=== PATIENT | female | born 1960 | race American Indian/Alaskan Native ===

== ENCOUNTER 2016-05-15 08:26 | Emergency (ER) | payer OTHER ==
[2016-05-15 08:47] VITALS: BP 160/91
--- NOTE | 2016-05-15 10:24 | Emergency Department Report ---
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 She denies numbness, tingling or incontinence Complaint: back pain Onset/Timin -: days(s) Similar Symptoms Previously: Yes Place: work Radiation: none Severity scale (0 -10): 9 Quality: aching Consistency: constant Improves With: immobilization Worsens With: movement Context: while lifting Associated Symptoms: denies other symptoms. denies: confusion, weakness, chest pain, numbness, difficulty walking, cough, difficulty urinating, diaphoresis, incontinence, fever/chills, constipation, headaches, abdominal pain, loss of appetite, malaise, nausea/vomiting, rash, seizure, shortness of breath, syncope Treatments Prior to Arrival: heat therapy, NSAIDS - Related Data Home Medications Medication Instructions Recorded Confirmed Last Taken Triamter/Hctz 37.5-25 mg PO DAILY 02/06/16 02/06/16 06:00 Previous Rx's Medication Instructions Recorded Last Taken Type Cyclobenzaprine [Flexeril] 10 mg PO TID PRN #20 tablet 05/15/16 Unknown Rx Ibuprofen [Motrin 800 MG tab] 800 mg PO Q8HR PRN #30 tablet 05/15/16 Unknown Rx Allergies Allergy/AdvReac Type Severity Reaction Status Date / Time No Known Allergies Allergy Verified 09/12/14 15:19 ED Review of Systems ROS: Stated complaint: BACK PAIN Other details as noted in HPI Constitutional: denies: chills, diaphoresis, fever, malaise, weakness Respiratory: denies: cough, orthopnea, shortness of breath, SOB with exertion, SOB at rest, stridor, wheezing Cardiovascular: denies: chest pain, palpitations, dyspnea on exertion, orthopnea , edema, syncope, paroxysmal nocturnal dyspnea Gastrointestinal: denies: abdominal pain, nausea, vomiting, diarrhea, constipation, hematemesis, melena Genitourinary: denies: urgency, dysuria, frequency, hematuria Musculoskeletal: back pain. denies: joint swelling, arthralgia, myalgia Skin: denies: rash, lesions, change in color, change in hair/nails, pruritus Neurological: denies: headache, weakness, numbness, paresthesias, confusion, abnormal gait, vertigo Hematological/Lymphatic: denies: easy bleeding, easy bruising, swollen glands ED Past Medical Hx - Past Medical History Previous Medical History?: Yes Hx Hypertension: Yes Hx Arthritis: Yes Additional medical history: heart murmur. OBESITY - Surgical History Past Surgical History?: Yes Additional Surgical History: X 2 , RIGHT shoulder surgery 2012 - Social History Smoking Status: Never Smoker Substance Use Type: None, Non Opiate Pain - Medications Home Medications: Home Medications Medication Instructions Recorded Confirmed Last Taken Type Triamter/Hctz 37.5-25 mg PO DAILY 02/06/16 02/06/16 06:00 History Cyclobenzaprine [Flexeril] 10 mg PO TID PRN #20 tablet 05/15/16 Unknown Rx Ibuprofen [Motrin 800 MG tab] 800 mg PO Q8HR PRN #30 tablet 05/15/16 Unknown Rx ED Physical Exam - General Limitations: No Limitations General appearance: alert, in no apparent distress - Head Head exam: Present: atraumatic, normocephalic - ENT ENT exam: Present: normal exam - Neck Neck exam: Present: normal inspection, full ROM. Absent: tenderness, meningismus, lymphadenopathy, thyromegaly - Respiratory Respiratory exam: Present: normal lung sounds bilaterally. Absent: respiratory distress, wheezes, rales, rhonchi, stridor, chest wall tenderness, accessory muscle use, decreased breath sounds, prolonged expiratory - Cardiovascular Cardiovascular Exam: Present: regular rate, normal rhythm. Absent: bradycardia , tachycardia, irregular rhythm, normal heart sounds, systolic murmur, diastolic murmur - GI/Abdominal GI/Abdominal exam: Present: soft, normal bowel sounds. Absent: distended, tenderness, guarding, rebound, rigid - Extremities Exam Extremities exam: Present: normal inspection, full ROM, normal capillary refill. Absent: tenderness, pedal edema, joint swelling, calf tenderness - Back Exam Back exam: Present: full ROM, tenderness (with palpation to right latissimus dorsi). Absent: CVA tenderness (R), CVA tenderness (L), muscle spasm, paraspinal tenderness, vertebral tenderness, rash noted - Neurological Exam Neurological exam: Present: alert, oriented X3, CN II-XII intact, normal gait, reflexes normal. Absent: motor sensory deficit - Psychiatric Psychiatric exam: Present: normal affect, normal mood - Skin Skin exam: Present: warm, dry, intact, normal color ED Course Vital Signs 05/15/16 08:43 Temperature 98.5 F Pulse Rate 64 Respiratory 20 Rate Blood Pressure 160/91 O2 Sat by Pulse 100 Oximetry ED Medical Decision Making - Medical Decision Making During the course of ED, all other systems are unremarkable except for documentation in HPI. Patient was sent home with prescriptions for Ibuprofen and Flexeril, instructed to follow up with the selective referral given at discharge, she verbalized understanding - Differential Diagnosis Back Pain, Musculoskeletal Pain Critical care attestation.: If time is entered above; I have spent that time in minutes in the direct care of this critically ill patient, excluding procedure time. ED Disposition Clinical Impression: Back pain Qualifiers: Back pain location: back pain in other location Chronicity: acute Qualified Code(s): M54.9 - Dorsalgia, unspecified Disposition: DISCHARGED TO HOME OR SELFCARE Is pt being admited?: No Does the pt Need Aspirin: No Condition: Stable Instructions: Back Pain (ED) Additional Instructions: Take medication as directed. Follow up with the selective referral given at discharge. Return back to the ED for worsening symptoms or concerns Prescriptions: Cyclobenzaprine [Flexeril] 10 mg PO TID PRN #20 tablet PRN Reason: Muscle Spasm Ibuprofen [Motrin 800 MG tab] 800 mg PO Q8HR PRN #30 tablet PRN Reason: Pain Referrals: PRIMARY MD BRIAN [Primary Care Provider] - 3-5 Days THONG KOEHLER MD [Staff Physician] - 3-5 Days Forms: Work/School Release Form(ED) Time of Disposition: 10:28
== END 2016-05-15 10:41 | disposition home or self-care (01) ==
LOC: ED 08:26
DX: M54.9 Dorsalgia, unspecified (principal); I10 Essential (primary) hypertension; M19.90 Unspecified osteoarthritis, unspecified site
CPT/HCPCS: 99282

== ENCOUNTER 2016-10-28 09:51 | Emergency (ER) | payer OTHER ==
[2016-10-28 11:09] VITALS: BP 143/84
[2016-10-28] MEDS ORDERED: TORADOL IM ONE (15:17)
--- NOTE | 2016-10-28 18:24 | Emergency Department Report ---
Entered by CINTHIA LEWIS, acting as scribe for ESTRADA TEMPLE NP. ED Extremity Problem HPI - General Chief complaint: Extremity Problem,Nontraumatic Stated complaint: RT HIP AND LEG Time Seen by Provider: 10/28/16 13:14 Source: patient Mode of arrival: Ambulatory Limitations: No Limitations - History of Present Illness Initial comments: This is a 55 y/o female, nontoxic, well nourished in appearance, no acute signs of distress with a PMHx of arthritis, HTN, heart murmur, and obesity presents with an acute episode of chronic back pain with radiating to right lower extremity pain that began 5 days ago. Rates pain an 8/10 in severity, which she describes as aching in quality. Aggravated with movement and palpation, and alleviated with nothing. Denies swelling, calf pain, calf tenderness, injury/ trauma, fever, chills, chest pain, SOB, MEHTA or dizziness, numbness, and tingling. Notes she had low back pain 1.5 month ago. Reports she was diagnosed previously with sciatica on the left side. Denies PMHx of herniated discs, DVT, and PE. Patient denies long car rides, recent travels, or recent hospital stays. 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 Took previously prescribed Flexeril with no relief. NKDA. COLON Complaint: extremity pain Onset/Timin -: days(s) Location: right, lower extremity History of Same: Yes -: No myalgia, Yes arthralgia, No fever, No associated dyspnea, No associated chest pain Radiation: none Severity scale (0 -10): 8 Quality: aching Consistency: constant Improves with: nothing Worsens with: weight bearing, walking Associated Symptoms: denies other symptoms, arthralgias. denies: chest pain, shortness of breath, fever, myalgias, rash - Related Data Home Medications Medication Instructions Recorded Confirmed Last Taken Triamter/Hctz 37.5-25 mg PO DAILY 02/06/16 02/06/16 06:00 Previous Rx's Medication Instructions Recorded Last Taken Type Cyclobenzaprine [Flexeril] 10 mg PO TID PRN #20 tablet 05/15/16 Unknown Rx Ibuprofen [Motrin 800 MG tab] 800 mg PO Q8HR PRN #30 tablet 05/15/16 Unknown Rx Cyclobenzaprine [Flexeril] 10 mg PO TID PRN #15 tablet 10/28/16 Unknown Rx Ibuprofen [Motrin 600 MG tab] 600 mg PO Q8H PRN #30 tablet 10/28/16 Unknown Rx Allergies Allergy/AdvReac Type Severity Reaction Status Date / Time No Known Allergies Allergy Verified 09/12/14 15:19 ED Review of Systems Comment: All other systems reviewed and negative Constitutional: denies: chills, fever Eyes: denies: eye pain, eye discharge, vision change ENT: denies: ear pain, throat pain Respiratory: denies: cough, orthopnea, shortness of breath, SOB with exertion, SOB at rest, stridor, wheezing Cardiovascular: denies: chest pain, palpitations, dyspnea on exertion, orthopnea , edema, syncope, paroxysmal nocturnal dyspnea Endocrine: no symptoms reported Gastrointestinal: denies: abdominal pain, nausea, vomiting, diarrhea Genitourinary: denies: urgency, dysuria, discharge Musculoskeletal: arthralgia (right lower extremity pain). denies: back pain, joint swelling, myalgia Skin: denies: rash, lesions Neurological: denies: headache, weakness, paresthesias Psychiatric: denies: anxiety, depression Hematological/Lymphatic: denies: easy bleeding, easy bruising ED Past Medical Hx - Past Medical History Previous Medical History?: Yes Hx Hypertension: Yes Hx Arthritis: Yes Additional medical history: heart murmur. OBESITY - Surgical History Past Surgical History?: Yes Additional Surgical History: X 2 , RIGHT shoulder surgery 2012 - Family History Family history: no significant - Social History Smoking Status: Never Smoker Substance Use Type: None - Medications Home Medications: Home Medications Medication Instructions Recorded Confirmed Last Taken Type Triamter/Hctz 37.5-25 mg PO DAILY 02/06/16 02/06/16 06:00 History Cyclobenzaprine [Flexeril] 10 mg PO TID PRN #20 tablet 05/15/16 Unknown Rx Ibuprofen [Motrin 800 MG tab] 800 mg PO Q8HR PRN #30 tablet 05/15/16 Unknown Rx Cyclobenzaprine [Flexeril] 10 mg PO TID PRN #15 tablet 10/28/16 Unknown Rx Ibuprofen [Motrin 600 MG tab] 600 mg PO Q8H PRN #30 tablet 10/28/16 Unknown Rx ED Physical Exam - General Limitations: No Limitations General appearance: alert, in no apparent distress - Head Head exam: Present: atraumatic, normocephalic - Eye Eye exam: Present: normal appearance, PERRL, EOMI. Absent: scleral icterus, conjunctival injection, nystagmus, periorbital swelling, periorbital tenderness Pupils: Present: normal accommodation - ENT ENT exam: Present: normal exam, normal orophraynx, mucous membranes moist, TM's normal bilaterally, normal external ear exam - Neck Neck exam: Present: normal inspection, full ROM. Absent: tenderness, meningismus, lymphadenopathy, thyromegaly - Respiratory Respiratory exam: Present: normal lung sounds bilaterally. Absent: respiratory distress, wheezes, rales, rhonchi, stridor, chest wall tenderness, accessory muscle use, decreased breath sounds, prolonged expiratory - Cardiovascular Cardiovascular Exam: Present: regular rate, normal rhythm, normal heart sounds. Absent: bradycardia, tachycardia, irregular rhythm, systolic murmur, diastolic murmur, rubs, gallop - GI/Abdominal GI/Abdominal exam: Present: soft, normal bowel sounds. Absent: distended, tenderness, guarding, rebound, rigid - Extremities Exam Extremities exam: Present: normal inspection, full ROM, normal capillary refill. Absent: tenderness, pedal edema, joint swelling, calf tenderness - Expanded Lower Extremity Exam Right Hip exam: Present: normal inspection, full ROM, external rotation, internal rotation, pelvic stability. Absent: tenderness, swelling, abrasion, laceration , ecchymosis, deformity, crepidus, dislocation, erythema, shortening Upper Leg exam: Present: normal inspection, full ROM. Absent: tenderness, swelling, abrasion, laceration, ecchymosis, deformity, crepidus, dislocation, erythema Knee exam: Present: full ROM, full knee extension. Absent: normal inspection, tenderness, swelling, abrasion, laceration, ecchymosis, deformity, crepidus, dislocation, erythema, effusion, pain w/ pronation/supination, posterior draw sign, pain/laxity with valgus, pain/laxity with varus Lower Leg exam: Present: full ROM. Absent: normal inspection, tenderness, swelling, abrasion, laceration, ecchymosis, deformity, crepidus, dislocation, erythema, palpable cord, Gilbert's sign Ankle exam: Present: normal inspection, full ROM. Absent: tenderness, swelling , abrasion, laceration, ecchymosis, deformity, crepidus, dislocation, erythema, anterior draw sign Foot/Toe exam: Present: normal inspection, full ROM. Absent: tenderness, swelling, abrasion, laceration, ecchymosis, deformity, crepidus, dislocation, erythema, amputation, puncture wound, foreign body, calcaneal tenderness, tenderness at base of 5th metatarsal, nail avulsion, subungual hematoma Neuro vascular tendon exam: Present: no vascular compromise. Absent: pulse deficit, abnormal cap refill, motor deficit, sensory deficit, tendon deficit, extremity cold to touch, pallor, abnormal 2-point discrimination, decreased fine /light touch, foot drop, peroneal nerve deficit, significant pain with passive ROM of distal joint Gait: Positive: observed and normal - Back Exam Back exam: Present: normal inspection, full ROM. Absent: tenderness, CVA tenderness (R), CVA tenderness (L), muscle spasm, paraspinal tenderness, vertebral tenderness, rash noted - Neurological Exam Neurological exam: Present: alert, oriented X3, CN II-XII intact, normal gait, reflexes normal. Absent: motor sensory deficit - Psychiatric Psychiatric exam: Present: normal affect, normal mood - Skin Skin exam: Present: warm, dry, intact. Absent: rash ED Course Vital Signs 10/28/16 10/28/16 11:05 15:23 Temperature 97.7 F Pulse Rate 68 Respiratory 18 18 Rate Blood Pressure 143/84 O2 Sat by Pulse 99 Oximetry - Reevaluation(s) Reevaluation #1: 10/28/16 15:44 Patient is speaking in full sentences with no distress ED Disposition Clinical Impression: Chronic back pain Qualifiers: Back pain location: low back pain Back pain laterality: left Sciatica presence : with sciatica Sciatica laterality: sciatica of right side Qualified Code(s): M54.41 - Lumbago with sciatica, right side; G89.29 - Other chronic pain Sciatica Qualifiers: Laterality: right Qualified Code(s): M54.31 - Sciatica, right side Low back strain Qualifiers: Encounter type: initial encounter Qualified Code(s): S39.012A - Strain of muscle, fascia and tendon of lower back, initial encounter Disposition: DC-01 TO HOME OR SELFCARE Is pt being admited?: No Does the pt Need Aspirin: No Condition: Stable Instructions: Sciatica (ED), Lumbar Radiculopathy (ED), Low Back Strain (ED), Ibuprofen (By mouth), Cyclobenzaprine (By mouth) Additional Instructions: Follow-up with a primary care doctor in 3-5 days or if symptoms worsen continue to emergency room as soon as possible. Take ibuprofen and Flexeril as prescribed. Do not operate heavy machinery while taking Flexeril due to sedation Prescriptions: Cyclobenzaprine [Flexeril] 10 mg PO TID PRN #15 tablet PRN Reason: Muscle Spasm Ibuprofen [Motrin 600 MG tab] 600 mg PO Q8H PRN #30 tablet PRN Reason: Pain Referrals: MIS PETERSON MD [Primary Care Provider] - 3-5 Days NOEMÍ ESTRADA MD [Staff Physician] - 3-5 Days [facility] [Outside] - 3-5 Days [facility] [Outside] - 3-5 Days Forms: Work/School Release Form(ED) This documentation as recorded by the DEBBIE chowdhury JASMINE,accurately reflects the service I personally performed and the decisions made by ,ESTRADA TEMPLE, SEEMA.
== END 2016-10-28 16:10 | disposition home or self-care (01) ==
LOC: ED 09:51
DX: S39.012A Strain of muscle, fascia and tendon of lower back, initial encounter (principal); M54.41 Lumbago with sciatica, right side; G89.29 Other chronic pain; M19.90 Unspecified osteoarthritis, unspecified site; I10 Essential (primary) hypertension; X50.3XXA Overexertion from repetitive movements, initial encounter; Y93.89 Activity, other specified; Y92.89 Other specified places as the place of occurrence of the external cause; Y99.8 Other external cause status
CPT/HCPCS: 96372; 99282; J1885

== ENCOUNTER 2017-07-05 13:49 | Inpatient (IN) | payer OTHER ==
[2017-07-05] MEDS ORDERED: ASPIRIN PO ONE (14:08)
[2017-07-05 15:06] LABS: Basophils % (Auto) 0.6 % (0.0-1.8); Eosinophils # (Auto) 0.3 K/mm3 (0.0-0.4); Eosinophils % (Auto) 3.6 % (0.0-4.3); Hematocrit 37.2 % (30.3-42.9); Hemoglobin 12.1 gm/dl (10.1-14.3); Lymphocytes # (Auto) 2.7 K/mm3 (1.2-5.4); Lymphocytes % (Auto) 34.6 % (13.4-35.0); Mean Corpuscular HGB Conc 33 % (30-34); Monocytes # (Auto) 0.7 K/mm3 (0.0-0.8); Monocytes % (Auto) 8.5 % (0.0-7.3); Platelet Count 242 K/mm3 (140-440); Red Blood Count 5.33 M/mm3 (3.65-5.03); Red Cell Distribution Width 14.5 % (13.2-15.2)
[2017-07-05 15:11] LABS: Mean Corpuscular Hemoglobin 23 pg (28-32); Mean Corpuscular Volume 70 fl (79-97)
[2017-07-05 15:41] LABS: BUN/Creatinine Ratio 21; Blood Urea Nitrogen 15 mg/dL (7-17); Calcium 9.9 mg/dL (8.4-10.2); Hemolysis Index 0
[2017-07-05] MEDS ORDERED: ASPIRIN ONE (21:06)
[2017-07-05] MEDS ORDERED: NORCO 5/325 PO ONE (21:08)
--- NOTE | 2017-07-05 21:20 | Emergency Department Report ---
ED Chest Pain HPI - General Chief Complaint: Chest Pain Stated Complaint: CHEST PAIN Time Seen by Provider: 07/05/17 20:33 Source: patient Mode of arrival: Ambulatory Limitations: No Limitations - History of Present Illness Initial Comments: 56 year old female with a past medical history hypertension, obesity, elevated cholesterol, heart murmur presents to Hospital complains of intermittent substernal chest pain since yesterday. Pain described as a moderate dull pain. No aggravating or alleviating factors reported. Pain does not radiate. Patient states pain is constant for several hours and then goes away. She denies associated symptoms including shortness of breath, nausea, vomiting, or diaphoresis. She denies recent travel, calf tenderness, edema, or history of PE /DVT. Patient states she had a negative stress test here 6 years ago. She complains of chronic right leg pain secondary to sciatica. - Related Data Home Medications Medication Instructions Recorded Confirmed Last Taken Triamter/Hctz 37.5-25 mg PO DAILY 02/06/16 02/06/16 06:00 Previous Rx's Medication Instructions Recorded Last Taken Type Cyclobenzaprine [Flexeril] 10 mg PO TID PRN #20 tablet 05/15/16 Unknown Rx Ibuprofen [Motrin 800 MG tab] 800 mg PO Q8HR PRN #30 tablet 05/15/16 Unknown Rx Cyclobenzaprine [Flexeril] 10 mg PO TID PRN #15 tablet 10/28/16 Unknown Rx Ibuprofen [Motrin 600 MG tab] 600 mg PO Q8H PRN #30 tablet 10/28/16 Unknown Rx Allergies Allergy/AdvReac Type Severity Reaction Status Date / Time No Known Allergies Allergy Verified 09/12/14 15:19 Heart Score - HEART Score History: Slightly suspicious EKG: Normal Age: 45-65 Risk factors: 1-2 risk factors Troponin: < normal limit HEART Score: 2 ED Review of Systems ROS: Stated complaint: CHEST PAIN Other details as noted in HPI Comment: All other systems reviewed and negative ED Past Medical Hx - Past Medical History Hx Hypertension: Yes Hx Arthritis: Yes Additional medical history: heart murmur. OBESITY - Surgical History Additional Surgical History: X 2 , RIGHT shoulder surgery 2012 - Social History Smoking Status: Never Smoker Substance Use Type: None - Medications Home Medications: Home Medications Medication Instructions Recorded Confirmed Last Taken Type Triamter/Hctz 37.5-25 mg PO DAILY 02/06/16 02/06/16 06:00 History Cyclobenzaprine [Flexeril] 10 mg PO TID PRN #20 tablet 05/15/16 Unknown Rx Ibuprofen [Motrin 800 MG tab] 800 mg PO Q8HR PRN #30 tablet 05/15/16 Unknown Rx Cyclobenzaprine [Flexeril] 10 mg PO TID PRN #15 tablet 10/28/16 Unknown Rx Ibuprofen [Motrin 600 MG tab] 600 mg PO Q8H PRN #30 tablet 10/28/16 Unknown Rx ED Physical Exam - General Limitations: No Limitations - Other Other exam information: General: No limitations, patient is alert in no acute distress Head exam: Atraumatic, normocephalic Eyes exam: Normal appearance, pupils equal reactive to light, extraocular movements intact ENT: Moist mucous membrane, normal oropharynx Neck exam: Normal inspection, full range of motion, no meningismus nontender Respiratory exam: Clear to auscultation bilateral, no wheezes, rales, crackles Cardiovascular: Normal rate and rhythm, normal heart sounds, chest wall nontedner Abdomen: Soft, nondistended, and nontender, with normal bowel sounds, no rebound, or guarding Extremity: Full range of motion normal inspection no deformity, no calf tenderness Back: Normal Inspection, full range of motion, no tenderness Neurologic: Alert, oriented x3, cranial nerves intact, no motor or sensory deficit Psychiatric: normal affect, normal mood Skin: Warm, dry, intact ED Course Vital Signs 07/05/17 14:04 Temperature 98.9 F Pulse Rate 82 Blood Pressure 140/92 O2 Sat by Pulse 95 Oximetry PAULINO score - Paulino Score Age > 65: (0) No Aspirin use within the Past 7 Days: (0) No 3 or more CAD Risk Factors: (1) Yes 2 or more Angina events in past 24 hrs: (0) No Known CAD with more than 50% Stenosis: (0) No Elevated Cardiac Markers: (0) No ST Deviation Greater than 0.5mm: (0) No PAULINO Score: 1 ED Medical Decision Making - Lab Data Result diagrams: 07/05/17 14:29 07/05/17 14:29 Lab Results 07/05/17 07/05/17 07/05/17 Range/Units 14:29 14:29 16:26 WBC 7.8 (4.5-11.0) K/mm3 RBC 5.33 H (3.65-5.03) M/mm3 Hgb 12.1 (10.1-14.3) gm/dl Hct 37.2 (30.3-42.9) % MCV 70 L (79-97) fl MCH 23 L (28-32) pg MCHC 33 (30-34) % RDW 14.5 (13.2-15.2) % Plt Count 242 (140-440) K/mm3 Lymph % (Auto) 34.6 (13.4-35.0) % [place] % (Auto) 8.5 H (0.0-7.3) % Eos % (Auto) 3.6 (0.0-4.3) % Baso % (Auto) 0.6 (0.0-1.8) % Lymph # 2.7 (1.2-5.4) K/mm3 [place] # 0.7 (0.0-0.8) K/mm3 Eos # 0.3 (0.0-0.4) K/mm3 Baso # 0.0 (0.0-0.1) K/mm3 Seg Neutrophils % 52.7 (40.0-70.0) % Seg Neutrophils # 4.1 (1.8-7.7) K/mm3 Sodium 140 (137-145) mmol/L Potassium 3.9 (3.6-5.0) mmol/L Chloride 97.7 L (98-107) mmol/L Carbon Dioxide 29 (22-30) mmol/L Anion Gap 17 mmol/L BUN 15 (7-17) mg/dL Creatinine 0.7 (0.7-1.2) mg/dL Estimated GFR > 60 ml/min BUN/Creatinine Ratio 21 % Glucose 111 H (65-100) mg/dL Calcium 9.9 (8.4-10.2) mg/dL Troponin T < 0.010 < 0.010 (0.00-0.029) ng/mL 07/05/17 Range/Units 19:42 WBC (4.5-11.0) K/mm3 RBC (3.65-5.03) M/mm3 Hgb (10.1-14.3) gm/dl Hct (30.3-42.9) % MCV (79-97) fl MCH (28-32) pg MCHC (30-34) % RDW (13.2-15.2) % Plt Count (140-440) K/mm3 Lymph % (Auto) (13.4-35.0) % [place] % (Auto) (0.0-7.3) % Eos % (Auto) (0.0-4.3) % Baso % (Auto) (0.0-1.8) % Lymph # (1.2-5.4) K/mm3 [place] # (0.0-0.8) K/mm3 Eos # (0.0-0.4) K/mm3 Baso # (0.0-0.1) K/mm3 Seg Neutrophils % (40.0-70.0) % Seg Neutrophils # (1.8-7.7) K/mm3 Sodium (137-145) mmol/L Potassium (3.6-5.0) mmol/L Chloride (98-107) mmol/L Carbon Dioxide (22-30) mmol/L Anion Gap mmol/L BUN (7-17) mg/dL Creatinine (0.7-1.2) mg/dL Estimated GFR ml/min BUN/Creatinine Ratio % Glucose (65-100) mg/dL Calcium (8.4-10.2) mg/dL Troponin T < 0.010 (0.00-0.029) ng/mL - EKG Data -: EKG Interpreted by [facility] EKG shows normal: sinus rhythm, axis (qrs 45), QRS complexes (qrsd 99), ST-T waves (no stemi/t inv) Rate: normal (81) - EKG Data When compared to previous EKG there are: no significant change - Medical Decision Making Chest pain Not reproducible Multiple risk factors Stress test 6 years ago Initial EKG unremarkable and cardiac enzymes negative 3 Patient will be admitted to the hospital for stress test to rule out unstable angina Aspirin provided Sciatica Chronic [place] provided - Differential Diagnosis [place], similar angina, atypical chest pain, costochondritis, PE Critical Care Time: No Critical care attestation.: If time is entered above; I have spent that time in minutes in the direct care of this critically ill patient, excluding procedure time. ED Disposition Clinical Impression: Chest pain, HTN (hypertension), Hyperlipemia, Sciatica Disposition: DC-09 OP ADMIT IP TO THIS HOSP Is pt being admited?: Yes Condition: Stable Time of Disposition: 21:20 (Dr Yeung/hosp)
[2017-07-05] MEDS ORDERED: ZOFRAN IV PRN (22:30)
[2017-07-05] MEDS ORDERED: SODIUM CHLORIDE FLUSH SYRINGE 10 ML IV PRN (22:30)
[2017-07-05] MEDS ORDERED: TYLENOL PO PRN (22:30)
--- NOTE | 2017-07-05 22:33 | History and Physical Report ---
History of Present Illness Date of examination: 07/05/17 History of present illness: 56-year-old lady with a history of hypertension comes emergency room with complaints of chest pain located in the epigastric area which started yesterday. She describes it as a dull, H pain, intermittent in nature lasting for a few hours, intensity 5/10, no radiation, she cannot identify exacerbating or relieving factors. Patient had a cardiac cath 2012 which was negative Review of systems Constitutional: no weight loss, chills Ears, eyes, nose, mouth and throat: no nasal congestion, no nasal discharge, no sinus pressure, no vision change, no red eye. Neck: No neck pain or rigidity. Cardiovascular: no palpitations Respiratory: No cough, shortness of breath Gastrointestinal: no abdominal pain, hematochezia Genitourinary : no dysuria, frequency , no hematuria Musculoskeletal: no joint swelling or muscle ache Integumentary: no rash, no pruritis Neurological: no parathesias, no numbness, no focal weakness Endocrine: no cold or heat intolerance, no polyuria or polydipsia Hematologic/Lymphatic: no easy bruising, no easy bleeding, no gland swelling Allergic/Immunologic: no urticaria, no angioedema. PAST MEDICAL HISTORY:hypertension PAST SURGICAL HISTORY: , rotator cuff SOCIAL HISTORY:Denies alcohol, tobacco, drugs FAMILY HISTORY: Hypertension Medications and Allergies Allergies Allergy/AdvReac Type Severity Reaction Status Date / Time No Known Allergies Allergy Verified 09/12/14 15:19 Home Medications Medication Instructions Recorded Confirmed Last Taken Type Triamter/Hctz 37.5-25 mg PO DAILY 02/06/16 02/06/16 06:00 History Cyclobenzaprine [Flexeril] 10 mg PO TID PRN #20 tablet 05/15/16 Unknown Rx Ibuprofen [Motrin 800 MG tab] 800 mg PO Q8HR PRN #30 tablet 05/15/16 Unknown Rx Cyclobenzaprine [Flexeril] 10 mg PO TID PRN #15 tablet 10/28/16 Unknown Rx Ibuprofen [Motrin 600 MG tab] 600 mg PO Q8H PRN #30 tablet 10/28/16 Unknown Rx Exam - Physical Exam Narrative exam: Gen. appearance: Patient lying in bed, no apparent distress HEENT: Normocephalic, atraumatic, pupils equally round and reactive to light, extraocular movement intact, and no sclericterus,. No JVD or thyromegaly or nodule,neck supple, no carotid bruit ,mucous membranes moist, no exudate or erythema Heart: S1, S2, regular rate and rhythm Lungs: Clear to auscultation bilaterally, breathing comfortable Abdomen: Positive bowel sounds, nontender, nondistended, no organomegaly Extremity: No edema, cyanosis, clubbing Skin: No rash, nodules, warm, dry Neuro: Oriented 3, cranial nerves II-12 intact, speech is fluent, motor and sensory intact - Constitutional Vitals: Temp Pulse Resp BP Pulse Ox 98.9 F 82 140/92 95 07/05/17 14:04 07/05/17 14:04 07/05/17 14:04 07/05/17 14:04 Results - Labs CBC & Chem 7: 07/05/17 14:29 07/05/17 14:29 Labs: Abnormal lab results 07/05/17 07/05/17 Range/Units 14:29 14:29 RBC 5.33 H (3.65-5.03) M/mm3 MCV 70 L (79-97) fl MCH 23 L (28-32) pg [place] % (Auto) 8.5 H (0.0-7.3) % Chloride 97.7 L (98-107) mmol/L Glucose 111 H (65-100) mg/dL - Imaging and Cardiology EKG: image reviewed Chest x-ray: image reviewed Assessment and Plan Assessment Chest pain, rule out ACS Hypertension Plan Admit to medicine Check cardiac enzymes, stress test DVT prophylaxis, start aspirin, IV morphine
--- NOTE | 2017-07-05 22:46 | XRay Report ---
FINAL REPORT EXAM: XR CHEST ROUTINE 2V HISTORY: cp TECHNIQUE: Frontal and lateral chest x-ray. PRIORS: None. FINDINGS: Tortuous and unwound thoracic aorta. Cardiac and mediastinal silhouette within normal limits. Lungs are normally expanded, without significant vascular congestion. No focal consolidation, pleural effusion or apparent pneumothorax. Degenerative change in the thoracic spine. IMPRESSION: 1. No acute findings.
[2017-07-05] MEDS ORDERED: NORCO 5/325 ONE (23:29)
[2017-07-06] MEDS: MORPHINE IV PRN ×2 (02:30→23:25)
[2017-07-06 07:53] LABS: Basophils % (Auto) 0.6 % (0.0-1.8); Eosinophils # (Auto) 0.2 K/mm3 (0.0-0.4); Eosinophils % (Auto) 4.2 % (0.0-4.3); Hematocrit 36.7 % (30.3-42.9); Hemoglobin 11.8 gm/dl (10.1-14.3); Lymphocytes # (Auto) 2.1 K/mm3 (1.2-5.4); Lymphocytes % (Auto) 34.4 % (13.4-35.0); Mean Corpuscular HGB Conc 32 % (30-34); Mean Corpuscular Volume 70 fl (79-97); Monocytes # (Auto) 0.7 K/mm3 (0.0-0.8); Monocytes % (Auto) 11.3 % (0.0-7.3); Platelet Count 243 K/mm3 (140-440); Red Blood Count 5.23 M/mm3 (3.65-5.03); Red Cell Distribution Width 14.8 % (13.2-15.2)
[2017-07-06 07:54] LABS: Mean Corpuscular Hemoglobin 23 pg (28-32)
[2017-07-06 08:20] LABS: BUN/Creatinine Ratio 32; Blood Urea Nitrogen 16 mg/dL (7-17); Calcium 9.4 mg/dL (8.4-10.2); Hemolysis Index 5
[2017-07-06] MEDS ORDERED: LEXISCAN IV ONE (09:36)
[2017-07-06] MEDS ORDERED: LOVENOX SUB-Q SCH (10:00)
[2017-07-06] MEDS: LOVENOX SUB-Q SCH ×2 (12:40→12:46)
[2017-07-06] MEDS: BABY ASPIRIN PO SCH (12:40)
[2017-07-06] MEDS: SODIUM CHLORIDE FLUSH SYRINGE 10 ML IV SCH ×2 (12:42→23:25)
--- NOTE | 2017-07-06 15:59 | Consultation ---
History of Present Illness Consult date: 07/06/17 Consult reason: chest pain History of present illness: This is is a 56yr old woman with a history of hypertension who presented to the emergency department with complaints of chest pain. A chest xray reports no acute findings. A 12 lead ECG is benign, a normal sinus rhythm. Patient was admitted for further evaluation with a stress thallium test ordered by the primary team. Medications and Allergies Allergies Allergy/AdvReac Type Severity Reaction Status Date / Time No Known Allergies Allergy Verified 09/12/14 15:19 Home Medications Medication Instructions Recorded Confirmed Last Taken Type Triamter/Hctz 37.5-25 mg 1 tab PO QDAY 02/06/16 07/06/17 02/06/16 06:00 History [Maxzide-25] Cyclobenzaprine [Flexeril] 10 mg PO TID PRN #15 tablet 10/28/16 07/06/17 Unknown Rx Ibuprofen [Motrin 600 MG tab] 600 mg PO Q8H PRN #30 tablet 10/28/16 07/06/17 Unknown Rx Active Meds: Active Medications Acetaminophen (Tylenol) 650 mg PO Q4H PRN PRN Reason: Pain MILD(1-3)/Fever >100.5/MEHTA Aspirin (Baby Aspirin) 81 mg PO QDAY [facility] Last Admin: 07/06/17 12:40 Dose: 81 mg Enoxaparin Sodium (Lovenox) 40 mg SUB-Q QDAY@1000 [facility] Last Admin: 07/06/17 12:46 Dose: Not Given Morphine Sulfate (Morphine) 2 mg IV Q4H PRN PRN Reason: Pain, Moderate (4-6) Last Admin: 07/06/17 02:30 Dose: 2 mg Ondansetron HCl (Zofran) 4 mg IV Q8H PRN PRN Reason: Nausea And Vomiting Sodium Chloride (Sodium Chloride Flush Syringe 10 Ml) 10 ml IV BID [facility] Last Admin: 07/06/17 12:42 Dose: 10 ml Sodium Chloride (Sodium Chloride Flush Syringe 10 Ml) 10 ml IV PRN PRN PRN Reason: LINE FLUSH Physical Examination Vital Signs Temp Pulse BP Pulse Ox 98.9 F 82 140/92 95 07/05/17 14:04 07/05/17 14:04 07/05/17 14:04 07/05/17 14:04 General appearance: no acute distress HEENT: Positive: PERRL Cardiac: Positive: Reg Rate and Rhythm Lungs: Positive: Decreased Breath Sounds Neuro: Positive: Grossly Intact Extremities: Absent: edema Results 07/06/17 07:04 07/06/17 07:04 CBC 07/06/17 Range/Units 07:04 WBC 6.0 (4.5-11.0) K/mm3 RBC 5.23 H (3.65-5.03) M/mm3 Hgb 11.8 (10.1-14.3) gm/dl Hct 36.7 (30.3-42.9) % Plt Count 243 (140-440) K/mm3 Lymph # 2.1 (1.2-5.4) K/mm3 [place] # 0.7 (0.0-0.8) K/mm3 Eos # 0.2 (0.0-0.4) K/mm3 Baso # 0.0 (0.0-0.1) K/mm3 Comprehensive Metabolic Panel 07/06/17 Range/Units 07:04 Sodium 141 (137-145) mmol/L Potassium 4.0 (3.6-5.0) mmol/L Chloride 100.6 (98-107) mmol/L Carbon Dioxide 28 (22-30) mmol/L BUN 16 (7-17) mg/dL Creatinine 0.5 L (0.7-1.2) mg/dL Glucose 116 H (65-100) mg/dL Calcium 9.4 (8.4-10.2) mg/dL Assessment and Plan - Patient Problems (1) Chest pain Current Visit: Yes Status: Acute Plan to address problem: abnormal thallium stress test. We will proceed with a cardiac catheterization tomorrow morning for further cardiac ischemic evaluation.
--- NOTE | 2017-07-06 16:49 | Treadmill Report ---
THALLIUM STRESS TEST LEFT VENTRICLE: Left ventricular chamber size is within normal limits. Perfusion study demonstrates a partially transient inferior wall defect with a mild degree of reversibility during the resting study. Gated analysis demonstrates normal left ventricular systolic function, ejection fraction greater than 70%. CONCLUSION: Abnormal perfusion study, demonstrating evidence of possible inferior ischemia. Clinical correlation is recommended. JOB# [id number] CA/NTS
--- NOTE | 2017-07-06 17:58 | Progress Note ---
Assessment and Plan - Atypical chest pain likely ACS continue with ASA, NTG, oxyegna nd morphine Lexiscan was abnormal with reversible defect For Cardiac cath - Hypertension optimize control with oral antihypertensive - Hyperglycemia Obtain A1c trend glycemic level - DVT prophylaxis with lovenox Subjective Date of service: 07/06/17 Principal diagnosis: Atypical chest pain Interval history: Chest pain improving Objective - Constitutional Vitals: Vital Signs - 12hr 07/06/17 07/06/17 07/06/17 05:59 08:06 09:43 Temperature 98.5 F 98.2 F Pulse Rate 76 72 72 Respiratory 20 20 Rate Blood Pressure 109/51 111/60 120/75 O2 Sat by Pulse 93 96 Oximetry 07/06/17 07/06/17 07/06/17 11:13 11:14 11:15 Temperature Pulse Rate 117 H 104 H 103 H Respiratory Rate Blood Pressure 139/85 149/75 139/75 O2 Sat by Pulse Oximetry 07/06/17 07/06/17 07/06/17 11:16 11:17 11:18 Temperature Pulse Rate 98 H 95 H 100 H Respiratory Rate Blood Pressure 119/72 111/71 110/70 O2 Sat by Pulse Oximetry 07/06/17 12:08 Temperature 98.2 F Pulse Rate 85 Respiratory 20 Rate Blood Pressure 131/64 O2 Sat by Pulse 96 Oximetry General appearance: Present: no acute distress, well-nourished - EENT Eyes: PERRL, EOM intact ENT: hearing intact, clear oral mucosa - Neck Neck: supple, normal ROM - Respiratory Respiratory effort: normal Respiratory: bilateral: CTA - Cardiovascular Rhythm: regular Heart Sounds: Present: S1 & S2. Absent: gallop, rub Extremities: pulses intact, No edema, normal color, Full ROM - Gastrointestinal General gastrointestinal: Present: soft, non-tender, non-distended, normal bowel sounds - Integumentary Integumentary: clear, warm, dry - Musculoskeletal Musculoskeletal: 1, strength equal bilaterally - Neurologic Neurologic: moves all extremities - Psychiatric Psychiatric: memory intact, appropriate mood/affect, intact judgment & insight - Labs CBC & Chem 7: 07/06/17 07:04 07/06/17 07:04 Labs: Abnormal lab results 07/06/17 07/06/17 Range/Units 07:04 07:04 RBC 5.23 H (3.65-5.03) M/mm3 MCV 70 L (79-97) fl MCH 23 L (28-32) pg [place] % (Auto) 11.3 H (0.0-7.3) % Creatinine 0.5 L (0.7-1.2) mg/dL Glucose 116 H (65-100) mg/dL
[2017-07-07 06:02] LABS: INR 0.91 (0.87-1.13)
[2017-07-07 06:12] LABS: BUN/Creatinine Ratio 28; Blood Urea Nitrogen 17 mg/dL (7-17); Calcium 9.1 mg/dL (8.4-10.2); Hemolysis Index 12
[2017-07-07] MEDS ORDERED: ECOTRIN PO NR (08:10)
--- NOTE | 2017-07-07 08:34 | Progress Note ---
Assessment and Plan - Atypical chest pain likely ACS continue with ASA, NTG, oxyegna nd morphine Lexiscan was abnormal with reversible defect For Cardiac cath today - Hypertension optimize control with oral antihypertensive - Hyperglycemia Obtain A1c trend glycemic level - DVT prophylaxis with lovenox - disposition: D/c if Cath is normal; Subjective Date of service: 07/07/17 Principal diagnosis: Atypical chest pain Interval history: Chest pain improving Objective - Constitutional Vitals: Vital Signs - 12hr 07/06/17 07/06/17 07/06/17 20:40 20:48 21:04 Temperature 98.3 F Pulse Rate 81 78 87 Respiratory 19 Rate Blood Pressure Blood Pressure 135/71 [Left] O2 Sat by Pulse 97 92 Oximetry 07/06/17 07/06/17 07/07/17 23:25 23:36 04:07 Temperature 98.1 F 98.3 F Pulse Rate 72 72 Respiratory 20 18 18 Rate Blood Pressure 113/49 95/62 Blood Pressure [Left] O2 Sat by Pulse 94 96 Oximetry 07/07/17 07:37 Temperature 98.6 F Pulse Rate 75 Respiratory 16 Rate Blood Pressure Blood Pressure 124/63 [Left] O2 Sat by Pulse 97 Oximetry General appearance: Present: no acute distress, well-nourished, obese - EENT Eyes: PERRL, EOM intact - Neck Neck: supple, normal ROM - Respiratory Respiratory effort: normal Respiratory: bilateral: CTA - Cardiovascular Rhythm: regular Heart Sounds: Present: S1 & S2. Absent: gallop, rub Extremities: pulses intact, No edema, normal color, Full ROM - Gastrointestinal General gastrointestinal: Present: soft, non-tender - Integumentary Integumentary: clear, warm, dry - Musculoskeletal Musculoskeletal: 1, strength equal bilaterally - Neurologic Neurologic: moves all extremities - Psychiatric Psychiatric: memory intact, appropriate mood/affect, intact judgment & insight - Labs CBC & Chem 7: 07/06/17 07:04 07/07/17 05:22 Labs: Abnormal lab results 07/07/17 07/07/17 Range/Units 05:22 06:31 Carbon Dioxide 31 H (22-30) mmol/L Creatinine 0.6 L (0.7-1.2) mg/dL POC Glucose 123 H (70-105)
[2017-07-07] MEDS: CALAN ONE ×2 (08:52→09:07)
[2017-07-07] MEDS: XYLOCAINE 2% INFILTRATI ONE ×2 (08:52→09:05)
[2017-07-07] MEDS: VERSED ONE ×2 (08:52→09:05)
[2017-07-07] MEDS: SUBLIMAZE ONE ×2 (08:52→09:05)
[2017-07-07] MEDS: HEPARIN 10,000 UNITS/10 ML ONE ×2 (08:53→09:07)
[2017-07-07] MEDS: NITROGLYCERIN SYRINGE 3 ML ONE ×2 (08:54→09:05)
[2017-07-07] MEDS: HEPARIN/NS 5000 UNIT/500ML(CATH LAB) 1,000 ML IR ONE ×2 (08:54→09:00)
[2017-07-07] MEDS ORDERED: NACL 0.9% 500 ML 500 ML IV SCH (09:00)
--- NOTE | 2017-07-07 09:30 | Progress Note ---
Assessment and Plan Atypical chest pain Abnormal MPI Normal coronaries by [facility] Normal LVEF Recommendations: No further cardiac work-up is needed Subjective Date of service: 07/07/17 Principal diagnosis: Atypical chest pain Interval history: [facility] completed - no complications Objective Vital Signs Temp Pulse Resp BP BP Pulse Ox 07/07/17 07:37 98.6 F 75 16 124/63 97 07/07/17 04:07 98.3 F 72 18 95/62 96 07/06/17 23:36 98.1 F 72 18 113/49 94 07/06/17 23:25 20 07/06/17 21:04 98.3 F 87 19 135/71 92 07/06/17 20:48 78 07/06/17 20:40 81 97 07/06/17 16:43 98.2 F 83 20 108/60 96 07/06/17 12:08 98.2 F 85 20 131/64 96 07/06/17 11:18 100 H 110/70 07/06/17 11:17 95 H 111/71 07/06/17 11:16 98 H 119/72 07/06/17 11:15 103 H 139/75 07/06/17 11:14 104 H 149/75 07/06/17 11:13 117 H 139/85 07/06/17 09:43 72 120/75 - Physical Examination HEENT: Positive: PERRL Neck: Positive: neck supple Cardiac: Positive: Reg Rate and Rhythm Lungs: Positive: Normal Exam Neuro: Positive: Grossly Intact Extremities: Absent: edema - Labs and Meds Coagulation 07/07/17 Range/Units 05:22 PT 12.7 (12.2-14.9) Sec. INR 0.91 (0.87-1.13) Comprehensive Metabolic Panel 07/07/17 Range/Units 05:22 Sodium 142 (137-145) mmol/L Potassium 4.0 (3.6-5.0) mmol/L Chloride 102.4 (98-107) mmol/L Carbon Dioxide 31 H (22-30) mmol/L BUN 17 (7-17) mg/dL Creatinine 0.6 L (0.7-1.2) mg/dL Calcium 9.1 (8.4-10.2) mg/dL - Imaging and Cardiology EKG: image reviewed
--- NOTE | 2017-07-07 09:44 | Cardiac Catherization Report ---
INDICATION FOR PROCEDURE: Chest pain, abnormal myocardial perfusion scan. ORDERING PHYSICIAN: Sharri Ewing MD PROCEDURES PERFORMED: 1. Selective left and right coronary angiography. 2. Left ventriculography. DESCRIPTION OF PROCEDURE: After obtaining the consent, the patient was draped using sterile technique. A 2% lidocaine was injected into the right wrist. A 6-[place] vascular sheath was inserted into the right radial artery. A 6-[place] JL4 catheter was used to selectively engage left coronary artery. A 6-[place] JR4 catheter was used to selectively engage right coronary artery. A 6-[place] JR4 catheter was used to hand inject the left ventriculogram. No complications occurred during the procedure. Hemostasis was achieved at the end of the procedure using manual pressure. SPECIMEN REMOVED: None. Physician-patient [id number] sedation start time 9:05 a.m. Physician-patient [id number] sedation stop time is 9:20 a.m. Total sedation time is 15 minutes. FINDINGS: HEMODYNAMICS: Aortic pressure 120/77, LV systolic pressure 120 mmHg, LVEDP 20 mmHg. CARDIAC STRUCTURES: Left ventricle is normal in size and systolic function, left ventricular ejection fraction estimated at 60%. CORONARY ANATOMY: 1. This is a right dominant circulation. 2. Left main is angiographically normal. 3. The LAD is angiographically normal. 4. Left circumflex artery is angiographically normal. 5. The right coronary artery is angiographically normal. IMPRESSION: 1. Angiographically normal coronary arteries. 2. Normal left ventricular size and systolic function. 3. LVEDP at 20 mmHg. RECOMMENDATIONS: No further cardiac workup is needed. The patient may be discharged home. JOB# [id number] ELIZABETH/MICHAEL
[2017-07-07] MEDS: BABY ASPIRIN PO SCH (10:04)
[2017-07-07] MEDS: LOVENOX SUB-Q SCH (10:04)
[2017-07-07] MEDS: SODIUM CHLORIDE FLUSH SYRINGE 10 ML IV SCH (10:04)
--- NOTE | 2017-07-07 16:48 | Discharge Summary ---
Providers - Providers Date of Admission: 07/05/17 22:30 Date of discharge: 07/07/17 Attending physician: FILIBERTO VERAS 07/07/17 09:29 Consult to Cardiac Rehabilitation [CONS] Routine Reason For Exam: Cardiac Rehab Evaluation Primary care physician: [facility] Hospitalization Reason for admission: chest pain Condition: Stable Pertinent studies: stress test that was abnormal showing reversible ischemia Procedures: cardiac cath that was normal Hospital course: 56-year-old lady with a history of hypertension presented to the emergency room with complaints of chest pain located in the epigastric area. She describes it as a dull, pain, intermittent in nature lasting for a few hours, intensity 5/10 , no radiation, she cannot identify exacerbating or relieving factors. Patient had a cardiac cath 2012 which was negative. Was commenced on oxygen, ASA, NTG and morphine. Lexiscan stress was done. Reversible epical defect identified. Cardiac cath done. finding weer normal. chest pain resolve. Pt was discharged to f/u with PCP in 3-5 days Disposition: DC-01 TO HOME OR SELFCARE Time spent for discharge: 35 min Core Measure Documentation - Palliative Care Palliative Care/ Comfort Measures: Not Applicable - Core Measures Any of the following diagnoses?: none Exam - Constitutional Vitals: Temp Pulse Resp BP Pulse Ox 98.6 F 71 16 124/63 97 07/07/17 07:37 07/07/17 11:00 07/07/17 07:37 07/07/17 07:37 07/07/17 10:26 General appearance: Present: no acute distress, well-nourished - EENT Eyes: Present: PERRL - Neck Neck: Present: supple, normal ROM - Respiratory Respiratory effort: normal Respiratory: bilateral: CTA - Cardiovascular Heart Sounds: Present: S1 & S2. Absent: rub, click - Extremities Extremities: pulses symmetrical, No edema Peripheral Pulses: within normal limits - Abdominal General gastrointestinal: Present: soft, non-tender, non-distended, normal bowel sounds - Integumentary Integumentary: Present: clear, warm, dry - Musculoskeletal Musculoskeletal: gait normal, strength equal bilaterally - Psychiatric Psychiatric: appropriate mood/affect, intact judgment & insight - Neurologic Neurologic: CNII-XII intact, moves all extremities Plan Activity: advance as tolerated, fall precautions Weight Bearing Status: Weight Bear as Tolerated Diet: low salt Follow up with: PRIMARY CARE, [Primary Care Provider] - 3 Days Forms: Kari PCI D/C Instructions, Discharge Signature Page Prescriptions: Aspirin [Aspirin BABY CHEW TAB] 81 mg PO QDAY #30 tab.chew Ibuprofen [Motrin 600 MG tab] 600 mg PO Q8H PRN #30 tablet PRN Reason: Pain Triamter/Hctz 37.5-25 mg [Maxzide-25] 1 tab PO QDAY #30 tablet
[2017-07-07 18:09] VITALS: BP 125/67
== END 2017-07-07 18:35 | disposition home or self-care (01) | DRG 287 ==
LOC: ED 13:49 → 4A 22:30
PROVIDERS: ADMIT Internal Medicine; ATTEND Family Medicine
PROC: 4A023N7 Measurement of Cardiac Sampling and Pressure, Left Heart, Percutaneous Approach (ICD-10-PCS; principal; 2017-07-07)
PROC: B2111ZZ Fluoroscopy of Multiple Coronary Arteries using Low Osmolar Contrast (ICD-10-PCS; 2017-07-07)
PROC: B2151ZZ Fluoroscopy of Left Heart using Low Osmolar Contrast (ICD-10-PCS; 2017-07-07)
DX: R07.89 Other chest pain (principal); I10 Essential (primary) hypertension; M19.90 Unspecified osteoarthritis, unspecified site; M54.30 Sciatica, unspecified side; R73.9 Hyperglycemia, unspecified; Z82.49 Family history of ischemic heart disease and other diseases of the circulatory system; Z79.899 Other long term (current) drug therapy
CPT/HCPCS: 36415; 71046; 78452; 80048; 82962; 83036; 84484; 85025; 85610; 93005; 93010; 93017; 93458; 96374; A9502; C1894; J1644; J1650; J2250; J2270; J2405; J2785; J3010; J7040; Q9967

== ENCOUNTER 2017-07-09 12:52 | Emergency (ER) | payer OTHER ==
[2017-07-09 13:13] VITALS: BP 120/65
[2017-07-09] MEDS ORDERED: XYLOCAINE 2% INFILTRATI ONE (16:19)
[2017-07-09] MEDS ORDERED: KEFLEX PO ONE (16:19)
[2017-07-09] MEDS ORDERED: BACTRIM DS PO ONE (16:19)
--- NOTE | 2017-07-09 16:26 | Emergency Department Report ---
- General Chief complaint: Wound/Laceration Stated complaint: INFECTED ARM FROM IV Time Seen by Provider: 07/09/17 16:09 Source: patient Mode of arrival: Ambulatory Limitations: No Limitations - History of Present Illness Initial comments: 56-year-old female presents with complaint of pain and swelling right AC joint. Patient states that she had an IV placed in her right AC joint while she was in the hospital approximately 3 days ago. Visible erythematous patch and right antecubital area. Patient states she has had slight pus drainage. Visible purulent/pustule developing overlying skin here. Patient denies fevers or chills MD complaint: abscess/boil, discoloration Onset/Timin -: days(s) Location: RUE Severity: moderate Severity scale (0 -10): 5 Quality: aching Consistency: intermittent Improves with: none Context: none Associated symptoms: denies other symptoms Treatments Prior to Arrival: none - Related Data Previous Rx's Medication Instructions Recorded Last Taken Type Cyclobenzaprine [Flexeril 10 MG 10 mg PO TID PRN #15 tablet 10/28/16 Unknown Rx TAB] Aspirin [Aspirin BABY CHEW TAB] 81 mg PO QDAY #30 tab.chew 07/07/17 Unknown Rx Ibuprofen [Motrin 600 MG tab] 600 mg PO Q8H PRN #30 tablet 07/07/17 Unknown Rx Triamter/Hctz 37.5-25 mg 1 tab PO QDAY #30 tablet 07/07/17 Unknown Rx [Maxzide-25] Acetaminophen [Acetaminophen TAB] 500 mg PO Q6HR PRN #20 tablet 07/09/17 Unknown Rx Cephalexin [Keflex] 500 mg PO Q12HR #14 cap 07/09/17 Unknown Rx Sulfamethoxazole/Trimethoprim 1 each PO BID #14 tablet 07/09/17 Unknown Rx [Bactrim DS TAB] Allergies Allergy/AdvReac Type Severity Reaction Status Date / Time No Known Allergies Allergy Verified 09/12/14 15:19 Abscess Boil HPI - HPI Chief Complaint: Wound/Laceration Stated Complaint: INFECTED ARM FROM IV Time Seen by Provider: 07/09/17 16:09 Home Medications: Previous Rx's Medication Instructions Recorded Last Taken Type Cyclobenzaprine [Flexeril 10 MG 10 mg PO TID PRN #15 tablet 10/28/16 Unknown Rx TAB] Aspirin [Aspirin BABY CHEW TAB] 81 mg PO QDAY #30 tab.chew 07/07/17 Unknown Rx Ibuprofen [Motrin 600 MG tab] 600 mg PO Q8H PRN #30 tablet 07/07/17 Unknown Rx Triamter/Hctz 37.5-25 mg 1 tab PO QDAY #30 tablet 07/07/17 Unknown Rx [Maxzide-25] Acetaminophen [Acetaminophen TAB] 500 mg PO Q6HR PRN #20 tablet 07/09/17 Unknown Rx Cephalexin [Keflex] 500 mg PO Q12HR #14 cap 07/09/17 Unknown Rx Sulfamethoxazole/Trimethoprim 1 each PO BID #14 tablet 07/09/17 Unknown Rx [Bactrim DS TAB] Allergies/Adverse Reactions: Allergies Allergy/AdvReac Type Severity Reaction Status Date / Time No Known Allergies Allergy Verified 09/12/14 15:19 ED Review of Systems ROS: Stated complaint: INFECTED ARM FROM IV Other details as noted in HPI Constitutional: denies: chills, fever Eyes: denies: eye pain, eye discharge, vision change ENT: denies: ear pain, throat pain Respiratory: denies: cough, shortness of breath, wheezing Cardiovascular: denies: chest pain, palpitations Endocrine: no symptoms reported Gastrointestinal: denies: abdominal pain, nausea, diarrhea Genitourinary: denies: urgency, dysuria, discharge Musculoskeletal: denies: back pain, joint swelling, arthralgia Skin: rash. denies: lesions Neurological: denies: headache, weakness, paresthesias Psychiatric: denies: anxiety, depression Hematological/Lymphatic: denies: easy bleeding, easy bruising ED Past Medical Hx - Past Medical History Hx Hypertension: Yes Hx Arthritis: Yes Additional medical history: heart murmur. OBESITY - Surgical History Additional Surgical History: X 2 , RIGHT shoulder surgery 2013 - Social History Smoking Status: Never Smoker Substance Use Type: None - Medications Home Medications: Home Medications Medication Instructions Recorded Confirmed Last Taken Type Cyclobenzaprine [Flexeril 10 MG 10 mg PO TID PRN #15 tablet 10/28/16 07/06/17 Unknown Rx TAB] Aspirin [Aspirin BABY CHEW TAB] 81 mg PO QDAY #30 tab.chew 07/07/17 Unknown Rx Ibuprofen [Motrin 600 MG tab] 600 mg PO Q8H PRN #30 tablet 07/07/17 Unknown Rx Triamter/Hctz 37.5-25 mg 1 tab PO QDAY #30 tablet 07/07/17 Unknown Rx [Maxzide-25] Acetaminophen [Acetaminophen TAB] 500 mg PO Q6HR PRN #20 tablet 07/09/17 Unknown Rx Cephalexin [Keflex] 500 mg PO Q12HR #14 cap 07/09/17 Unknown Rx Sulfamethoxazole/Trimethoprim 1 each PO BID #14 tablet 07/09/17 Unknown Rx [Bactrim DS TAB] ED Physical Exam - General Limitations: No Limitations General appearance: alert, in no apparent distress - Head Head exam: Present: atraumatic, normocephalic - Eye Eye exam: Present: normal appearance, PERRL, EOMI - ENT ENT exam: Present: mucous membranes moist - Neck Neck exam: Present: normal inspection - Respiratory Respiratory exam: Present: normal lung sounds bilaterally. Absent: respiratory distress - Cardiovascular Cardiovascular Exam: Present: regular rate, normal rhythm. Absent: systolic murmur, diastolic murmur, rubs, gallop - GI/Abdominal GI/Abdominal exam: Present: soft, normal bowel sounds - Extremities Exam Extremities exam: Present: normal inspection - Back Exam Back exam: Present: normal inspection - Neurological Exam Neurological exam: Present: alert, oriented X3, CN II-XII intact, normal gait - Psychiatric Psychiatric exam: Present: normal affect, normal mood - Skin Skin exam: Present: warm, dry, intact, normal color. Absent: rash - Expanded Skin Exam Expanded Description of rash: Present: tenderness, erythematous, swelling, fluctuant ED Course Vital Signs 07/09/17 13:09 Temperature 98.6 F Pulse Rate 85 Respiratory 16 Rate Blood Pressure 120/65 O2 Sat by Pulse 96 Oximetry - I & D Right Proximal Arm Type of Procedure: Simple Site: right antecubital joint Blade Size: 11 I & D Procedure: betadine prep Progress: Area anesthetized with lidocaine. Small stab incision made, tiny amount of purulent drainage. Minimal bleeding. Covered with Band-Aid afterward. Wound culture collected and sent. ED Medical Decision Making - Medical Decision Making A/P: Right AC joint skin cellulitis, abscess, superficial thrombophlebitis 1-empiric course of Bactrim and Keflex twice a day 7 days 2-Tylenol when necessary 3-wound cultures sent 4- pt advised to return to the ED for development of fever or chills or rapid spread of area of erythema on right arm. Patient took a picture of an area of cellulitis to marked progression. Critical care attestation.: If time is entered above; I have spent that time in minutes in the direct care of this critically ill patient, excluding procedure time. ED Disposition Clinical Impression: Cellulitis of right arm, Abscess of right arm Disposition: - TO HOME OR SELFCARE Is pt being admited?: No Does the pt Need Aspirin: No Condition: Stable Instructions: Cellulitis (ED), Abscess Incision and Drainage (ED) Prescriptions: Acetaminophen [Acetaminophen TAB] 500 mg PO Q6HR PRN #20 tablet PRN Reason: Pain Cephalexin [Keflex] 500 mg PO Q12HR #14 cap Sulfamethoxazole/Trimethoprim [Bactrim DS TAB] 1 each PO BID #14 tablet Referrals: ANGELA MONTALVO MD [Primary Care Provider] - 3-5 Days Forms: Accompanied Note, Work/School Release Form(ED) Time of Disposition: 17:17
== END 2017-07-09 17:24 | disposition home or self-care (01) ==
LOC: ED 12:52
DX: L02.413 Cutaneous abscess of right upper limb (principal); I10 Essential (primary) hypertension; M19.90 Unspecified osteoarthritis, unspecified site; E66.9 Obesity, unspecified; Z79.82 Long term (current) use of aspirin
CPT/HCPCS: 87076; 87116; 87186

== ENCOUNTER 2017-10-08 15:08 | Outpatient (CLI) | payer OTHER | END 2017-10-08 15:09 | disposition home or self-care (01) | LOC: LABHHL 15:08 | PROVIDERS: ATTEND Surgery | DX: D24.2 Benign neoplasm of left breast (principal); I10 Essential (primary) hypertension; E78.5 Hyperlipidemia, unspecified; M19.90 Unspecified osteoarthritis, unspecified site; E78.00 Pure hypercholesterolemia, unspecified | CPT/HCPCS: 88305 ==

== ENCOUNTER 2018-03-08 14:13 | Outpatient (CLI) | payer OTHER ==
--- NOTE | 2018-03-08 15:25 | Ultrasound Report ---
LEFT DIGITAL DIAGNOSTIC MAMMOGRAM and LEFT BREAST ULTRASOUND: 03/08/18 14:13:00 CLINICAL: Followup after benign biopsy. The pathology revealed benign breast tissue with fibroadenomatous changes and focal columnar cell change. COMPARISON:10/08/17 and 09/15/17 FINDINGS: The breast is mostly fatty with a few residual scattered fibroglandular densities. A partially circumscribed irregular mass at an upper outer biopsy clip.It measures approximately 1.5 cm maximum. No other mass and no architectural distortion or suspicious calcifications. Ultrasound of the upper outer left breast was performed and demonstrated a hydro-josefina biopsy clip and a poorly defined mass at the clip. The margins are much less distinct than on the previous ultrasound exams. IMPRESSION: No mammographic evidence of malignancy.A benign left upper outer breast mass which is less distinct by ultrasound. BI-RADS CATEGORY: 2 - - Benign RECOMMENDATION: Clinical followup and routine mammographic screening. ACR BI-RADS MAMMOGRAPHIC CODES: 0 = Needs additional imaging evaluation; 1 = Negative; 2 = Benign; 3 = Probably benign; 4 = Suspicious; 5 = Malignant; 6 = Known biopsy-proven malignancy COMMENT: 1. Dense breast tissue, i.e., adenosis, fibrocystic changes, etc., may obscure an underlying neoplasm. 2. Approximately 10% of cancers are not detected with mammography. 3. A negative mammography report should not delay biopsy if a clinically suspicious mass is present. COMMENT: Patient follow-up letters are generated by our [employer] application.
== END 2018-03-08 14:14 | disposition home or self-care (01) ==
LOC: SPVWC 14:13
PROVIDERS: ATTEND Surgery
DX: D24.2 Benign neoplasm of left breast (principal); I10 Essential (primary) hypertension; E78.5 Hyperlipidemia, unspecified; E78.00 Pure hypercholesterolemia, unspecified; M19.90 Unspecified osteoarthritis, unspecified site

== ENCOUNTER 2018-09-06 10:13 | Outpatient (CLI) | payer OTHER ==
--- NOTE | 2018-09-06 11:17 | Mammography Report ---
BILATERAL DIGITAL SCREENING MAMMOGRAMS WITH CAD INDICATION: Screening. Follow-up after left benign needle biopsy. COMPARISONS: 03/08/2018 left breast only FINDINGS: Craniocaudal and mediolateral oblique views of both breasts were obtained using 2-D digital acquisition. In addition to standard review, the examination was analyzed for possible abnormalities using a computer-assisted detection device (iCAD). There are scattered areas of fibroglandular density. A partially circumscribed left outer mass with a biopsy clip is slightly smaller compared to the last exam. No new mass, architectural distortion or suspicious calcifications of the left breast. A right focal asymmetry requires additional imaging. IMPRESSION: Stable left breast after benign biopsy. A right asymmetry requires additional imaging. Recommend reca ll for right spot magnification views and right breast ultrasound if needed. BI-RADS CATEGORY 0: INCOMPLETE - NEED ADDITIONAL IMAGING EVALUATION AND/OR PRIOR MAMMOGRAMS FOR COMP ARISON Information is entered into a reminder system for a target due date for the next mammogram. The resul ts and recommendations were sent to the patient by mail. Signer Name: Leif Galvan MD Signed: 09/06/2018 11:13 AM Workstation Name: [id number]
--- NOTE | 2018-09-06 15:28 | Mammography Report ---
RIGHT DIGITAL DIAGNOSTIC MAMMOGRAM INDICATION: Asymmetries on screening mammogram. TECHNIQUE: Additional right mammographic imaging was performed. COMPARISON: Same day screening FINDINGS: Breast Density: There are scattered areas of fibroglandular density. Additional right mammographic views were performed and are negative. IMPRESSION: No mammographic evidence of malignancy. BI-RADS Category 1: Negative. Recommend routine screening mammography in one year. A "normal" or negative report should not discourage follow up or biopsy of a clinically significant f inding. A written summary of these findings will be mailed to the patient. The patient will be entered into a mammography reporting system which will generate a reminder letter for the patient's next appointmen t at the appropriate interval. FURTHER INFORMATION: According to the [employer], yearly mammograms are recommend ed starting at age 40 and continuing as long as a woman is in good health. Breast MRI is recommended for women with an approximately 20-25% or greater lifetime risk of breast cancer, including women wi th a strong family history of breast or ovarian cancer and women who have been treated for Hodgkin's disease. Signer Name: Leif Galvan MD Signed: 09/06/2018 3:24 PM Workstation Name: [id number]
== END 2018-09-06 10:14 | disposition home or self-care (01) ==
LOC: SPVWC 10:13
PROVIDERS: ATTEND Surgery
DX: Z12.31 Encounter for screening mammogram for malignant neoplasm of breast (principal); I10 Essential (primary) hypertension; E78.5 Hyperlipidemia, unspecified; E78.00 Pure hypercholesterolemia, unspecified
CPT/HCPCS: 77067

== ENCOUNTER 2019-01-11 09:03 | Day surgery (SDC) | payer OTHER ==
[2019-01-11] MEDS ORDERED: SODIUM CHLORIDE 0.9% 1000 ML 1,000 ML IV SCH (11:00)
[2019-01-11] MEDS ORDERED: LIDOCAINE MPF (2%) 20 MG/1 ML VIAL 5 ML ONE (11:30)
[2019-01-11] MEDS ORDERED: PROPOFOL 200 MG/20 ML VIAL IV ONE ×2 (11:44)
--- NOTE | 2019-01-11 11:51 | Anesthesia Consultation ---
Anesthesia Consult and Med Hx Date of service: 01/11/19 - Airway Anesthetic Teeth Evaluation: Partials ROM Head & Neck: Adequate Mental/Hyoid Distance: Adequate Mallampati Class: Class II Intubation Access Assessment: Good - Pulmonary Exam CTA: Yes - Cardiac Exam Cardiac Exam: RRR - Pre-Operative Health Status ASA Pre-Surgery Classification: ASA2 Proposed Anesthetic Plan: MAC - Cardiovascular System Hx Hypertension: Yes Hx Heart Murmur: Yes (did not appreciate on examination) - Hematic Hx Anemia: Yes - Other Systems Hx Cancer: No
--- NOTE | 2019-01-11 11:51 | Anesthesia Day of Surgery ---
Anesthesia Day of Surgery - Day of Surgery Patient Examined: Yes Patient H&P Reviewed: Yes Patient is NPO: Yes
--- NOTE | 2019-01-11 12:05 | Short Stay Summary ---
Short Stay Documentation Date of service: 01/11/19 Narrative H&P: Pt presents for surveillance colonoscopy for personal history of colon polyps; no new gi complaints at this time. - History H&P: obtained from office Past Medical History: other (no changes) Past Surgical History: Other (no changes) Social history: no significant social history - Allergies and Medications Current Medications: Allergies No Known Allergies Allergy (Verified 09/12/14 15:19) Home Medications Medication Instructions Recorded Confirmed Last Taken Type Cyclobenzaprine [Flexeril 10 MG 10 mg PO TID PRN #15 tablet 10/28/16 07/06/17 Unknown Rx TAB] Aspirin [Aspirin BABY CHEW TAB] 81 mg PO QDAY #30 tab.chew 07/07/17 Unknown Rx Ibuprofen [Motrin 600 MG tab] 600 mg PO Q8H PRN #30 tablet 07/07/17 Unknown Rx Triamter/Hctz 37.5-25 mg 1 tab PO QDAY #30 tablet 07/07/17 Unknown Rx [Maxzide-25] Acetaminophen [Acetaminophen TAB] 500 mg PO Q6HR PRN #20 tablet 07/09/17 Unknown Rx Sulfamethoxazole/Trimethoprim 1 each PO BID #14 tablet 07/09/17 Unknown Rx [Bactrim DS TAB] cephALEXin [Keflex] 500 mg PO Q12HR #14 cap 07/09/17 Unknown Rx Active Medications Sodium Chloride (Nacl 0.9% 1000 Ml) 1,000 mls @ 50 mls/hr IV DIRECT BARTOLOME Last Admin: 01/11/19 11:03 Dose: 50 mls/hr Documented by: - Physical exam General appearance: no acute distress, obese Heart: Regular rate Gastrointestinal: normal - Brief post op/procedure progress note Date of procedure: 01/11/19 Pre-op diagnosis: personal history of colon polyps Post-op diagnosis: other (internal hemorrhoids) Procedure: Colonoscopy Anesthesia: MAC Findings: Internal hemorrhoids, otherwise normal colonoscopy Surgeon: NICOLA PETERSON Estimated blood loss: none Pathology: none Condition: stable - Disposition Condition at discharge: Good Disposition: DC-01 TO HOME OR SELFCARE Short Stay Discharge Plan Follow up with: ANGELA MONTALVO MD [Primary Care Provider] - 7 Days
--- NOTE | 2019-01-11 12:07 | Operative Report ---
Operative Report Operative Report: Colonoscopy Procedure Note Date of procedure: 01/11/2019 Endoscopist: Tomasz Yi Pre-op diagnosis/indication: Surveillance colonoscopy for personal history of colon polyps Post-op diagnosis: Internal hemorrhoids MEDICATIONS: MAC COMPLICATIONS: No immediate complications ESTIMATED BLOOD LOSS: none DESCRIPTION OF PROCEDURE: After consent was obtained, the patient was placed in the left lateral decubitis position. The olympus colonoscope was inserted into the rectum under direct vision, and advanced to the cecum without difficulty. The quality of prep was good. The patient tolerated the procedure well. The patient's vital signs were monitored continuously throughout the procedure. FINDINGS: Internal hemorrhoids were visualized on retroflexion view. Otherwise, the colon appeared normal. IMPRESSION: 1. Internal hemorrhoids, otherwise normal colonoscopy RECOMMENDATIONS: -repeat colonoscopy in 5 years for personal history of colon polyps
[2019-01-11 12:44] VITALS: BP 137/66
--- NOTE | 2019-01-11 14:28 | Post Anesthesia Evaluation ---
- Post Anesthesia Evaluation Patient Participated: Yes Airway Patent: Yes Stable Respiratory Function: Yes Nausea/Vomiting: No Temp > 96.8F: Yes Pain Manageable: Yes Adequeate Hydration: Yes Anesthesia Complications: No Block Receding Appropriately: Not Applicable Patient on Ventilator: No
== END 2019-01-11 09:04 | disposition home or self-care (01) ==
LOC: GIO 09:03
PROVIDERS: ATTEND Internal Medicine Gastroenterology
DX: Z12.11 Encounter for screening for malignant neoplasm of colon (principal); K64.8 Other hemorrhoids; I10 Essential (primary) hypertension; E78.5 Hyperlipidemia, unspecified; E78.00 Pure hypercholesterolemia, unspecified; M19.90 Unspecified osteoarthritis, unspecified site; Z79.899 Other long term (current) drug therapy; Z98.891 History of uterine scar from previous surgery; Z82.49 Family history of ischemic heart disease and other diseases of the circulatory system
CPT/HCPCS: 45378; J2704

== ENCOUNTER 2019-09-12 10:00 | Outpatient (CLI) | payer OTHER ==
--- NOTE | 2019-09-12 11:47 | Mammography Report ---
DIGITAL SCREENING MAMMOGRAM WITH CAD, 09/12/2019 INDICATION: Routine screening mammography. TECHNIQUE: Digital bilateral 2D mammography was obtained in the craniocaudal and mediolateral obliq ue projections. This examination was interpreted with the benefit of Computer-Aided Detection analysi s. COMPARISON: 09/06/2018, 03/08/2018, 10/08/2017 FINDINGS: Breast Density: There are scattered areas of fibroglandular density. There is no evidence of dominant mass, suspicious calcifications or architectural distortion in eithe r breast. The previously biopsied nodular density in the upper outer quadrant of the anterior depth o f the left breast is stable. IMPRESSION: Follow up recommendation: Routine yearly BI-RADS Category 2: Benign. A "normal" or negative report should not discourage follow up or biopsy of a clinically significant f inding. A written summary of these findings will be mailed to the patient. The patient will be entered into a mammography reporting system which will generate a reminder letter for the patient's next appointmen t at the appropriate interval. The [employer] recommends yearly mammograms starting at age 40 and continuing as l aly as a woman is in good health. Breast MRI is recommended for women with an approximate 20-25% or greater lifetime risk of breast cancer, including women with a strong family history of breast or ova chiqui cancer or who have been treated for Hodgkin's disease. Signer Name: Danilo Vazquez MD Signed: 09/12/2019 11:43 AM Workstation Name: [id number]
== END 2019-09-12 11:30 | disposition home or self-care (01) ==
LOC: SPVWC 10:00
PROVIDERS: ATTEND Surgery
DX: Z12.31 Encounter for screening mammogram for malignant neoplasm of breast (principal)
CPT/HCPCS: 77067

== ENCOUNTER 2020-09-17 15:07 | Outpatient (CLI) | payer OTHER ==
--- NOTE | 2020-09-17 19:31 | Mammography Report ---
DIGITAL SCREENING MAMMOGRAM WITH TOMOSYNTHESIS WITH CAD, 09/17/2020 CLINICAL INFORMATION / INDICATION: Screening TECHNIQUE: Digital bilateral 2D and 3D mammography with tomosynthesis was obtained in the craniocaud al and mediolateral oblique projections. Computer-Aided Detection (CAD) analysis was used for interp retation of this study. COMPARISON: 09/12/2019 FINDINGS: Breast Density: There are scattered areas of fibroglandular density. No dominant mass, suspicious calcifications, or architectural distortion in either breast. Mild nodularity is stable. IMPRESSION: No mammographic evidence of malignancy. Follow up recommendation: Routine yearly BI-RADS Category 2: Benign. A "normal" or negative report should not discourage follow up or biopsy of a clinically significant f inding. A written summary of these findings will be mailed to the patient. The patient will be entered into a mammography reporting system which will generate a reminder letter for the patient's next appointmen t at the appropriate interval. The [employer] recommends yearly mammograms starting at age 40 and continuing as l aly as a woman is in good health. Breast MRI is recommended for women with an approximate 20-25% or greater lifetime risk of breast cancer, including women with a strong family history of breast or ova chiqui cancer or who have been treated for Hodgkin's disease. Signer Name: Miguelito Rosado MD Signed: 09/17/2020 7:26 PM Workstation Name: [id number]
== END 2020-09-17 15:08 | disposition home or self-care (01) ==
LOC: SPVWC 15:07
PROVIDERS: ATTEND Surgery
DX: Z12.31 Encounter for screening mammogram for malignant neoplasm of breast (principal)
CPT/HCPCS: 77063; 77067